=== PATIENT | female | born 1975 | race Caucasian/White ===

== ENCOUNTER → 2017-01-20 | Outpatient (CLI) | payer BC, MEDICARE | LOC: US 14:26 | DX: I95.0 Idiopathic hypotension (principal); Z88.2 Allergy status to sulfonamides; Z79.82 Long term (current) use of aspirin; Z79.899 Other long term (current) drug therapy | CPT/HCPCS: 93930 ==

== ENCOUNTER → 2017-02-23 | Outpatient (CLI) | payer BC, MEDICARE | LOC: HEART 5 09:30 | DX: R00.2 Palpitations (principal) ==

== ENCOUNTER → 2020-11-06 | Outpatient (CLI) | payer BC, MEDICARE, OTHER | LOC: KOH-I 15:14 | DX: M17.0 Bilateral primary osteoarthritis of knee (principal) | CPT/HCPCS: 73562 ==

== ENCOUNTER → 2021-12-05 | Outpatient (CLI) | payer BC, MEDICARE | LOC: KOH-I 11:48 | DX: M79.672 Pain in left foot (principal) | CPT/HCPCS: 73650 ==

== ENCOUNTER → 2022-05-20 | Outpatient (CLI) | payer BC, MEDICARE | LOC: KOH-I 08:54 | DX: M51.16 Intervertebral disc disorders with radiculopathy, lumbar region (principal) | CPT/HCPCS: 72148 ==